=== PATIENT | female | born 1955 | race Caucasian/White ===

== ENCOUNTER → 2016-07-28 | Outpatient (CLI) | payer OTHER ==
--- NOTE | 2016-07-28 11:34 | DX ---
Right Knee, Four Views 9:57 a.m. Indication: Fell on concrete. Pain. Technique: AP, oblique, lateral, and Merchant views. Findings: The normally mineralized bones are anatomically aligned. No acute fracture. Trace suprapate llar effusion. Minimal osteoarthritis is evidenced by minimal joint space narrowing and small margina l osteophytes emanating off the medial tibiofemoral joint space and the facets of the patella. The pa tella is normally aligned on the Merchant view. Impression: 1. No acute fracture. 2. Small suprapatellar effusion and minimal osteoarthritis.
== END ==
LOC: BRMIMAGING 09:47
PROVIDERS: ATTEND Physician Assistant Medical
DX: M17.11 Unilateral primary osteoarthritis, right knee (principal); M25.461 Effusion, right knee
CPT/HCPCS: 73564-PO

== ENCOUNTER → 2016-12-09 | Outpatient (CLI) | payer OTHER | LOC: BRMIMAGING 08:34 | PROVIDERS: ATTEND Physician Assistant Medical | DX: Z13.820 Encounter for screening for osteoporosis (principal); M85.88 Other specified disorders of bone density and structure, other site ==

== ENCOUNTER → 2017-01-13 | Outpatient (CLI) | payer OTHER | LOC: BRMIMAGING 08:50 | PROVIDERS: ATTEND Physician Assistant Medical | DX: N64.4 Mastodynia (principal) | CPT/HCPCS: 76641-PO; G0204 ==